=== PATIENT | male | born 1975 | race Caucasian/White ===

== ENCOUNTER 2022-01-18 13:55 | Emergency (ER) | payer MEDICARE ==
[2022-01-18] MEDS ORDERED: Sodium Chloride 0.9% 10 ML Syringe FLUSH PRN (14:27)
[2022-01-18] MEDS ORDERED: Sodium Chloride 0.9% 2.5 ML Syringe FLUSH PRN (14:27)
[2022-01-18 15:13] LABS: CARBON DIOXIDE,CO2 30.7 mmol/L (21.0-32.0); POTASSIUM,K 5.1 mmol/L (3.5-5.1)
[2022-01-18 16:18] LABS: CORONAVIRUS COVID-19 NAA NEGATIVE (NEGATIVE); INFLUENZA A NAA NEGATIVE (NEGATIVE); INFLUENZA B NAA NEGATIVE (NEGATIVE)
== END 2022-01-18 16:15 | disposition home or self-care (01) ==
LOC: MW.ED 13:55
DX: R07.89 Other chest pain (principal); E11.9 Type 2 diabetes mellitus without complications; R61 Generalized hyperhidrosis; E03.9 Hypothyroidism, unspecified; I50.9 Heart failure, unspecified; Z20.822 Contact with and (suspected) exposure to COVID-19
CPT/HCPCS: 0240U; 36415; 71045; 80053; 83690; 84484; 85025; 85379; 85610; 93005; 99285; J3490; 93010; 99284

== ENCOUNTER 2022-05-08 06:35 | Day surgery (SDC) | payer MEDICARE ==
[~2022-05-08 06:35] MED LIST: Acetaminophen 1,000 MG in Premix Bag 1 BAG IV SCH; Albuterol 0.083% 2.5 MG/3 ML Neb Soln NEB PRN; HYDROmorphone 1 MG/ML Syringe IVPUSH PRN; Lactated Ringers 1,000 ML IV SCH; Metoclopramide 10 MG/2 ML SDV IVPUSH PRN; Morphine 4 MG/ML VIAL IVPUSH PRN; Naloxone 0.4 MG/ML SDV IVPUSH PRN; Ondansetron 4 MG/2 ML SDV IVPUSH PRN; Pregabalin 75 MG Cap PO SCH; Ropivacaine 0.5% 5 MG/ML 30 ML SDV ONE; ceFAZolin 2 GM in Premix Bag 1 BAG IV SCH; fentaNYL 50 MCG/ML SDV IVPUSH PRN
[2022-05-08] MEDS ORDERED: propofoL 100 ML ONE (07:14)
[2022-05-08] MEDS ORDERED: Ketamine 500 mg/10 ML MDV ONE (07:15)
[2022-05-08] MEDS ORDERED: Dexmedetomidine 200 MCG/2 ML SDV ONE (07:15)
[2022-05-08] MEDS ORDERED: fentaNYL 100 MCG/2 ML SDV ONE ×2 (07:15→09:19)
[2022-05-08] MEDS ORDERED: Octyl 2-Cyanoacrylate 1 g/1 mL 1 APPLIC PEN ONE (07:18)
[2022-05-08] MEDS ORDERED: Bupivacaine 0.5% 30 ML SDV ONE (07:18)
[2022-05-08] MEDS ORDERED: Lidocaine 2% Jelly 30 ML Tube ONE (07:38)
[2022-05-08] MEDS ORDERED: Midazolam 1 MG/ML 2 ML SDV ONE (07:44)
[2022-05-08] MEDS ORDERED: ceFAZolin 1 GM Vial ONE (08:10)
[2022-05-08] MEDS ORDERED: ePHEDrine 50 MG/ML SDV ONE (08:33)
[2022-05-08] MEDS ORDERED: Ketorolac 30 MG/ML SDV ONE (08:34)
[2022-05-08] MEDS ORDERED: Ondansetron 4 MG/2 ML SDV ONE (08:34)
== END 2022-05-08 13:15 | disposition home or self-care (01) ==
LOC: MW.SDS 06:35
PROVIDERS: ATTEND Surgery
DX: K40.90 Unilateral inguinal hernia, without obstruction or gangrene, not specified as recurrent (principal); E11.9 Type 2 diabetes mellitus without complications; E78.00 Pure hypercholesterolemia, unspecified; I50.9 Heart failure, unspecified; E05.90 Thyrotoxicosis, unspecified without thyrotoxic crisis or storm; I25.2 Old myocardial infarction; I11.0 Hypertensive heart disease with heart failure; Z01.812 Encounter for preprocedural laboratory examination; Z87.891 Personal history of nicotine dependence; Z79.82 Long term (current) use of aspirin; Z79.899 Other long term (current) drug therapy; Z79.890 Hormone replacement therapy; Z20.822 Contact with and (suspected) exposure to COVID-19
CPT/HCPCS: 49505; 82947; A9270; C1781; J0131; J0690; J1885; J2250; J2405; J2704; J2795; J3010; J3490; J7120; U0002; 00830; 64486

== ENCOUNTER 2023-03-21 12:33 | Emergency (ER) | payer MEDICARE ==
[2023-03-21 13:19] LABS: BASOPHILS ABSOLUTE AUTO 0.1 K/uL (0.0-0.1); BASOPHILS PERCENT AUTO 1.3 % (0.0-1.5); EOSINOPHILS ABSOLUTE AUTO 0.1 K/uL (0.0-0.7); EOSINOPHILS PERCENT AUTO 1.4 % (0.0-7.0); HEMATOCRIT 56.1 % (38.0-50.0); HEMOGLOBIN 19.1 g/dL (13.0-17.0); LYMPHOCYTES PERCENT AUTO 12.3 % (16.0-40.0); MEAN CORPUSCULAR HEMOGLOBIN 30.1 pg (27.0-32.0); MEAN CORPUSCULAR VOLUME 88.3 fL (80.0-98.0); MONOCYTES ABSOLUTE AUTO 0.6 K/uL (0.0-0.8); MONOCYTES PERCENT AUTO 7.5 % (0.0-15.0); NEUTROPHILS ABSOLUTE AUTO 6.1 K/uL (1.4-5.7); NEUTROPHILS PERCENT AUTO 77.5 % (48.0-80.0); NRBC ABSOLUTE 0 K/uL; PLATELET COUNT,PLT 279 K/uL (150-400); RED BLOOD CELL COUNT 6.35 M/uL (4.50-5.90)
[2023-03-21 13:22] LABS: A/G RATIO 0.6 (0.9-1.6); ALBUMIN 2.4 g/dL (3.4-5.0); BILIRUBIN TOTAL 1.1 mg/dL (0.2-1.0); CALCIUM 8.6 mg/dL (8.5-10.1); CARBON DIOXIDE,CO2 28.2 mmol/L (21.0-32.0); CREATININE 1.3 mg/dL (0.8-1.3); EST CRCL DRUG DOSING (CG) 80.79 mL/min; POTASSIUM,K 4.5 mmol/L (3.5-5.1); PROTEIN TOTAL,TP 6.5 g/dL (6.4-8.2)
[2023-03-21] MEDS ORDERED: Furosemide 40 MG/4 ML VIAL IVPUSH ONE (13:35)
== END 2023-03-21 15:39 | disposition home or self-care (01) ==
LOC: MW.ED 12:33
DX: J40 Bronchitis, not specified as acute or chronic (principal); E78.00 Pure hypercholesterolemia, unspecified; I25.2 Old myocardial infarction; M19.90 Unspecified osteoarthritis, unspecified site; E11.9 Type 2 diabetes mellitus without complications; E03.9 Hypothyroidism, unspecified; I50.9 Heart failure, unspecified; Z79.82 Long term (current) use of aspirin; Z79.899 Other long term (current) drug therapy
CPT/HCPCS: 36415; 71046; 80053; 83880; 84484; 85025; 93005; 96374; 99285; J1940; 93010; 99284

== ENCOUNTER 2023-11-06 08:06 | Inpatient (IN) | payer MEDICAID, MEDICARE ==
[2023-11-06 08:25] LABS: BASOPHILS PERCENT AUTO 1.4 % (0.0-1.0); EOSINOPHILS ABSOLUTE AUTO 0.21 K/uL (0.00-0.45); EOSINOPHILS PERCENT AUTO 2.9 % (0.0-6.0); HEMATOCRIT 55.5 % (42.0-52.0); HEMOGLOBIN 18.6 g/dL (14.0-18.0); IMMATURE GRAN ABSOLUTE AUTO 0.03 K/uL (0.00-0.05); IMMATURE GRAN PERCENT AUTO 0.4 % (0.0-0.4); LYMPHOCYTES ABSOLUTE AUTO 0.88 K/uL (1.00-4.80); LYMPHOCYTES PERCENT AUTO 12.3 % (24.0-44.0); MEAN CORPUSCULAR HEMOGLOBIN 29.8 pg (28.0-32.0); MEAN CORPUSCULAR HGB CONC 33.5 g/dL (32.0-36.0); MEAN CORPUSCULAR VOLUME 88.8 fL (83.0-99.0); MEAN PLATELET VOLUME 10.9 fL (9.4-12.4); MONOCYTES ABSOLUTE AUTO 0.54 K/uL (0.00-0.80); MONOCYTES PERCENT AUTO 7.5 % (0.0-8.0); NEUTROPHILS ABSOLUTE AUTO 5.42 K/uL (1.80-7.70); NEUTROPHILS PERCENT AUTO 75.5 % (41.0-71.0); PLATELET COUNT,PLT 234 K/uL (150-400); RED BLOOD CELL COUNT 6.25 M/uL (4.52-5.90); WHITE BLOOD CELL COUNT,WBC 7.18 K/uL (3.9-11.3)
[2023-11-06] MEDS ORDERED: Morphine 4 MG/ML Syringe IVPUSH ONE (08:32)
[2023-11-06] MEDS ORDERED: Ondansetron 4 MG/2 ML SDV IVPUSH ONE ×2 (08:38→14:45)
[2023-11-06 08:44] LABS: A/G RATIO 0.7 (0.9-1.6); ALBUMIN 3.1 g/dL (3.4-5.0); BILIRUBIN TOTAL 0.9 mg/dL (0.2-1.0); CALCIUM 9.2 mg/dL (8.5-10.1); CARBON DIOXIDE,CO2 30.7 mmol/L (21.0-32.0); CREATININE 1.4 mg/dL (0.8-1.3); EST CRCL DRUG DOSING (CG) 74.21 mL/min; POTASSIUM,K 4.7 mmol/L (3.5-5.1); PROTEIN TOTAL,TP 7.3 g/dL (6.4-8.2)
[2023-11-06] MEDS ORDERED: Iopamidol 755 MG/ML 500 ML Multipack Bottle IVPUSH ONE (09:39)
[2023-11-06] MEDS ORDERED: Morphine 2 MG/ML SYRINGE IM ONE (10:46)
[2023-11-06] MEDS ORDERED: Morphine 2 MG/ML SYRINGE IVPUSH ONE (10:52)
[2023-11-06] MEDS ORDERED: Lidocaine 4% 1 each Patch TOP PRN (10:52)
[2023-11-06] MEDS ORDERED: Gadobenate Dimeglumine 529 MG/ML 20 ML SDV IVPUSH STA (10:59)
[2023-11-06] MEDS ORDERED: Iopamidol 755 MG/ML 500 ML Multipack Bottle IVPUSH STA (11:29)
[2023-11-06] MEDS ORDERED: Lactated Ringers 1,000 ML IV SCH (14:15)
[2023-11-06 14:26] LABS: APPEARANCE,URINE CLEAR; BILIRUBIN,URINE NEGATIVE (NEGATIVE); COLOR,URINE YELLOW; GLUCOSE,URINE NEGATIVE (NEGATIVE); KETONES,URINE NEGATIVE (NEGATIVE); LEUKOCYTE ESTERASE,URINE NEGATIVE (NEGATIVE); NITRITE,URINE NEGATIVE (NEGATIVE); OCCULT BLOOD,URINE SMALL (NEGATIVE); PROTEIN,URINE >=300 mg/dL (NEGATIVE); UROBILINOGEN,URINE 0.2 EU/dL (<2.0)
[2023-11-06] MEDS ORDERED: Morphine 4 MG/ML Syringe IVPUSH PRN (14:45)
[2023-11-06 14:55] LABS: BACTERIA,URINE FEW (NEGATIVE); EPITHELIAL CELLS,URINE NOT SEEN (NONE-FEW); MUCUS,URINE LIGHT (NONE-MOD); WBC,URINE 0-2 (0-5/HPF)
[2023-11-06] MEDS ORDERED: Sodium Chloride 0.9% 2.5 ML Syringe FLUSH PRN (16:22)
[2023-11-06] MEDS ORDERED: Naloxone 0.4 MG/ML SDV IVPUSH PRN (16:22)
[2023-11-06] MEDS ORDERED: Sodium Chloride 0.9% 10 ML Syringe FLUSH PRN (16:22)
[2023-11-06] MEDS ORDERED: Morphine 2 MG/ML SYRINGE IVPUSH PRN (16:22)
[2023-11-06] MEDS ORDERED: Pantoprazole 40 MG in Sodium Chloride 0.9% 10 ML IVPUSH SCH (16:30)
[2023-11-06] MEDS: Metoclopramide 10 MG/2 ML SDV IVPUSH SCH ×2 (17:04→23:52)
[2023-11-06] MEDS: cefTRIAXone 1 GM in Sodium Chloride 0.9% 50 ML IV SCH (17:40)
[2023-11-06] MEDS: Sodium Chloride 0.9% 1,000 ML IV SCH (17:40)
[2023-11-06] MEDS ORDERED: 50% Dextrose in Water 50 ML Syringe IVPUSH PRN (18:20)
[2023-11-06] MEDS ORDERED: Glucagon,Human Recombinant 1 MG Vial IM PRN (18:20)
[2023-11-06] MEDS: Heparin Sodium 5,000 Units/ML Vial SUBCUT SCH (18:38)
[2023-11-06] MEDS: Insulin Aspart 100 Units/ML 3 ML Pen SUBCUT SCH ×2 (18:40→23:56)
[2023-11-06] MEDS ORDERED: Carvedilol 12.5 MG Tab PO SCH ×2 (21:00)
[2023-11-06] MEDS: Morphine 4 MG/ML Syringe IVPUSH PRN (21:06)
[2023-11-07] MEDS: Morphine 4 MG/ML Syringe IVPUSH PRN ×8 (04:39→23:59)
[2023-11-07] MEDS: Heparin Sodium 5,000 Units/ML Vial SUBCUT SCH ×2 (05:47→18:49)
[2023-11-07] MEDS: Insulin Aspart 100 Units/ML 3 ML Pen SUBCUT SCH ×3 (05:50→19:35)
[2023-11-07 06:42] LABS: BASOPHILS ABSOLUTE AUTO 0.08 K/uL (0.00-0.20); BASOPHILS PERCENT AUTO 1.2 % (0.0-1.0); EOSINOPHILS ABSOLUTE AUTO 0.01 K/uL (0.00-0.45); EOSINOPHILS PERCENT AUTO 0.1 % (0.0-6.0); HEMATOCRIT 52.1 % (42.0-52.0); HEMOGLOBIN 17.7 g/dL (14.0-18.0); IMMATURE GRAN ABSOLUTE AUTO 0.04 K/uL (0.00-0.05); IMMATURE GRAN PERCENT AUTO 0.6 % (0.0-0.4); LYMPHOCYTES ABSOLUTE AUTO 0.47 K/uL (1.00-4.80); LYMPHOCYTES PERCENT AUTO 6.8 % (24.0-44.0); MEAN CORPUSCULAR HEMOGLOBIN 30.3 pg (28.0-32.0); MEAN CORPUSCULAR VOLUME 89.1 fL (83.0-99.0); MEAN PLATELET VOLUME 10.9 fL (9.4-12.4); MONOCYTES ABSOLUTE AUTO 0.39 K/uL (0.00-0.80); MONOCYTES PERCENT AUTO 5.7 % (0.0-8.0); NEUTROPHILS ABSOLUTE AUTO 5.89 K/uL (1.80-7.70); NEUTROPHILS PERCENT AUTO 85.6 % (41.0-71.0); PLATELET COUNT,PLT 216 K/uL (150-400); RED BLOOD CELL COUNT 5.85 M/uL (4.52-5.90); WHITE BLOOD CELL COUNT,WBC 6.88 K/uL (3.9-11.3)
[2023-11-07] MEDS: Levothyroxine 112 MCG Tab PO SCH (06:44)
[2023-11-07] MEDS: Sodium Chloride 0.9% 1,000 ML IV SCH ×2 (06:56→21:21)
[2023-11-07 07:09] LABS: A/G RATIO 0.7 (0.9-1.6); ALBUMIN 2.5 g/dL (3.4-5.0); CALCIUM 8.3 mg/dL (8.5-10.1); CREATININE 1.3 mg/dL (0.8-1.3); EST CRCL DRUG DOSING (CG) 79.92 mL/min; MAGNESIUM 1.7 mg/dL (1.8-2.4); POTASSIUM,K 3.8 mmol/L (3.5-5.1); PROTEIN TOTAL,TP 6.2 g/dL (6.4-8.2)
[2023-11-07] MEDS: Carvedilol 25 MG Tab PO SCH ×2 (09:54→22:03)
[2023-11-07] MEDS: Metoclopramide 10 MG/2 ML SDV IVPUSH SCH ×4 (09:55→21:17)
[2023-11-07] MEDS ORDERED: Magnesium Sulfate/Water 2 GM in Premix Bag 1 BAG IV ONE (11:04)
[2023-11-07] MEDS: Pantoprazole 40 MG in Sodium Chloride 0.9% 10 ML IVPUSH SCH (13:57)
[2023-11-07] MEDS: cefTRIAXone 1 GM in Sodium Chloride 0.9% 50 ML IV SCH (18:36)
[2023-11-08] MEDS: Ondansetron 4 MG/2 ML SDV IVPUSH PRN ×3 (00:03→12:53)
[2023-11-08] MEDS: Pantoprazole 40 MG in Sodium Chloride 0.9% 10 ML IVPUSH SCH ×2 (00:17→14:06)
[2023-11-08] MEDS: Insulin Aspart 100 Units/ML 3 ML Pen SUBCUT SCH ×3 (00:19→11:57)
[2023-11-08] MEDS: Morphine 4 MG/ML Syringe IVPUSH PRN ×5 (03:09→16:06)
[2023-11-08] MEDS: Metoclopramide 10 MG/2 ML SDV IVPUSH SCH ×3 (03:15→14:06)
[2023-11-08] MEDS: Levothyroxine 112 MCG Tab PO SCH (06:37)
[2023-11-08] MEDS: Heparin Sodium 5,000 Units/ML Vial SUBCUT SCH (06:39)
[2023-11-08 06:54] LABS: BASOPHILS ABSOLUTE AUTO 0.06 K/uL (0.00-0.20); BASOPHILS PERCENT AUTO 0.6 % (0.0-1.0); EOSINOPHILS ABSOLUTE AUTO 0.05 K/uL (0.00-0.45); EOSINOPHILS PERCENT AUTO 0.5 % (0.0-6.0); HEMATOCRIT 56.1 % (42.0-52.0); HEMOGLOBIN 18.6 g/dL (14.0-18.0); IMMATURE GRAN ABSOLUTE AUTO 0.04 K/uL (0.00-0.05); IMMATURE GRAN PERCENT AUTO 0.4 % (0.0-0.4); LYMPHOCYTES ABSOLUTE AUTO 0.65 K/uL (1.00-4.80); LYMPHOCYTES PERCENT AUTO 6.7 % (24.0-44.0); MEAN CORPUSCULAR HEMOGLOBIN 29.8 pg (28.0-32.0); MEAN CORPUSCULAR HGB CONC 33.2 g/dL (32.0-36.0); MEAN CORPUSCULAR VOLUME 89.9 fL (83.0-99.0); MEAN PLATELET VOLUME 11.5 fL (9.4-12.4); MONOCYTES ABSOLUTE AUTO 0.47 K/uL (0.00-0.80); MONOCYTES PERCENT AUTO 4.9 % (0.0-8.0); NEUTROPHILS ABSOLUTE AUTO 8.38 K/uL (1.80-7.70); NEUTROPHILS PERCENT AUTO 86.9 % (41.0-71.0); PLATELET COUNT,PLT 263 K/uL (150-400); RED BLOOD CELL COUNT 6.24 M/uL (4.52-5.90); WHITE BLOOD CELL COUNT,WBC 9.65 K/uL (3.9-11.3)
[2023-11-08 08:12] LABS: A/G RATIO 0.8 (0.9-1.6); ALBUMIN 2.7 g/dL (3.4-5.0); BILIRUBIN TOTAL 1.4 mg/dL (0.2-1.0); CALCIUM 8.4 mg/dL (8.5-10.1); CARBON DIOXIDE,CO2 25.7 mmol/L (21.0-32.0); CREATININE 1.3 mg/dL (0.8-1.3); EST CRCL DRUG DOSING (CG) 79.92 mL/min; POTASSIUM,K 3.9 mmol/L (3.5-5.1)
[2023-11-08] MEDS: Carvedilol 25 MG Tab PO SCH (08:26)
[2023-11-08] MEDS: Sodium Chloride 0.9% 1,000 ML IV SCH (12:02)
[2023-11-08] MEDS: cefTRIAXone 1 GM in Sodium Chloride 0.9% 50 ML IV SCH (16:17)
== END 2023-11-08 17:30 | DRG 74 ==
LOC: MW.ED 08:06 → MW.MS 16:15 → INTOOBSV 16:15 → OBSVTOIN 11-07 08:48
PROVIDERS: ADMIT Internal Medicine; ATTEND Internal Medicine
DX: R11.2 Nausea with vomiting, unspecified (principal); R42 Dizziness and giddiness; R07.9 Chest pain, unspecified; E11.43 Type 2 diabetes mellitus with diabetic autonomic (poly)neuropathy; I50.9 Heart failure, unspecified; I42.7 Cardiomyopathy due to drug and external agent; I50.22 Chronic systolic (congestive) heart failure; E78.00 Pure hypercholesterolemia, unspecified; E11.9 Type 2 diabetes mellitus without complications; N12 Tubulo-interstitial nephritis, not specified as acute or chronic; K31.84 Gastroparesis; E78.5 Hyperlipidemia, unspecified; I11.0 Hypertensive heart disease with heart failure; E03.9 Hypothyroidism, unspecified; M19.90 Unspecified osteoarthritis, unspecified site; I25.10 Atherosclerotic heart disease of native coronary artery without angina pectoris; I25.2 Old myocardial infarction; I45.10 Unspecified right bundle-branch block; F19.11 Other psychoactive substance abuse, in remission; Z79.82 Long term (current) use of aspirin; Z79.890 Hormone replacement therapy; Z79.899 Other long term (current) drug therapy; Z95.810 Presence of automatic (implantable) cardiac defibrillator; Z98.890 Other specified postprocedural states
CPT/HCPCS: 36415 ×2; 70498; 71045 ×2; 71275 ×2; 74177; 80053 ×2; 81001; 82947 ×2; 83690 ×2; 83735; 83880; 84484 ×2; 85025 ×2; 87086; 93005; 96361; 96365; 96372; 96375 ×3; 96376 ×3; 99285; A9270 ×3; C9113; G0378 ×3; J0696; J1644 ×2; J1815; J2270 ×6; J2405 ×2; J2765 ×2; J3490 ×2; J7030 ×2; J7120; Q9967 ×2; 76705; 76705-26; 83605; 93010; 96374; J3475

== ENCOUNTER 2024-06-18 15:04 | Emergency (ER) | payer MEDICARE ==
[2024-06-18 15:23] LABS: BASOPHILS ABSOLUTE AUTO 0.04 K/uL (0.00-0.20); BASOPHILS PERCENT AUTO 0.3 % (0.0-1.0); HEMATOCRIT 50.7 % (42.0-52.0); HEMOGLOBIN 16.8 g/dL (14.0-18.0); IMMATURE GRAN ABSOLUTE AUTO 0.03 K/uL (0.00-0.05); IMMATURE GRAN PERCENT AUTO 0.3 % (0.0-0.4); LYMPHOCYTES ABSOLUTE AUTO 0.34 K/uL (1.00-4.80); MEAN CORPUSCULAR HEMOGLOBIN 29.8 pg (28.0-32.0); MEAN CORPUSCULAR HGB CONC 33.1 g/dL (32.0-36.0); MEAN CORPUSCULAR VOLUME 89.9 fL (83.0-99.0); MEAN PLATELET VOLUME 10.3 fL (9.4-12.4); MONOCYTES PERCENT AUTO 2.6 % (0.0-8.0); NEUTROPHILS ABSOLUTE AUTO 10.81 K/uL (1.80-7.70); NEUTROPHILS PERCENT AUTO 93.8 % (41.0-71.0); PLATELET COUNT,PLT 360 K/uL (150-400); RED BLOOD CELL COUNT 5.64 M/uL (4.52-5.90); WHITE BLOOD CELL COUNT,WBC 11.52 K/uL (3.9-11.3)
[2024-06-18] MEDS: Ondansetron 4 MG/2 ML SDV IVPUSH STA (15:25)
[2024-06-18] MEDS: Sodium Chloride 0.9% 500 ML IV STA (15:25)
[2024-06-18] MEDS: Morphine 4 MG/ML Syringe IVPUSH STA ×2 (15:25→19:06)
[2024-06-18 15:36] LABS: INR 1.14 (0.86-1.11); PTT,PARTIAL THROMBOPLSTIN TIME 32.7 SEC (23.9-30.7)
[2024-06-18 15:53] LABS: A/G RATIO 0.9 (0.9-1.6); ALBUMIN 3.9 g/dL (3.4-5.0); BILIRUBIN TOTAL 0.9 mg/dL (0.2-1.0); CALCIUM 9.7 mg/dL (8.5-10.1); CARBON DIOXIDE,CO2 30.1 mmol/L (21.0-32.0); CREATININE 1.2 mg/dL (0.8-1.3); EST CRCL DRUG DOSING (CG) 84.15 mL/min; POTASSIUM,K 4.6 mmol/L (3.5-5.1); PROTEIN TOTAL,TP 8.3 g/dL (6.4-8.2); TSH ULTRASENSITIVE 22.06 uIU/mL (0.36-3.74)
[2024-06-18 16:22] LABS: T4 FREE 0.63 ng/dL (0.76-1.46)
[2024-06-18] MEDS: Furosemide 40 MG/4 ML VIAL IVPUSH STA (16:26)
[2024-06-18] MEDS: Sodium Chloride 0.9% 10 ML Syringe FLUSH PRN (16:28)
[2024-06-18] MEDS: Sodium Chloride 0.9% 2.5 ML Syringe FLUSH PRN (16:28)
[2024-06-18] MEDS: Iopamidol 755 Mg/ML 100 ML Bottle IVPUSH STA (17:15)
[2024-06-18 17:46] LABS: BILIRUBIN,URINE NEGATIVE (NEGATIVE); COLOR,URINE YELLOW; GLUCOSE,URINE NEGATIVE (NEGATIVE); KETONES,URINE NEGATIVE (NEGATIVE); LEUKOCYTE ESTERASE,URINE NEGATIVE (NEGATIVE); NITRITE,URINE NEGATIVE (NEGATIVE); OCCULT BLOOD,URINE TRACE-INTACT (NEGATIVE); PROTEIN,URINE 30 mg/dL (NEGATIVE); UROBILINOGEN,URINE 0.2 EU/dL (<2.0)
[2024-06-18 18:02] LABS: CORONAVIRUS COVID-19 NAA NEGATIVE (NEGATIVE); INFLUENZA A NAA NEGATIVE (NEGATIVE); INFLUENZA B NAA NEGATIVE (NEGATIVE)
[2024-06-18 18:29] LABS: APPEARANCE,URINE HAZY
[2024-06-18 18:30] LABS: BACTERIA,URINE 2+ (NEGATIVE); EPITHELIAL CELLS,URINE RARE (NONE-FEW); RBC,URINE 0-1 (0-2/HPF); WBC,URINE 0-2 (0-5/HPF)
[2024-06-18] MEDS: droPERidol 5 MG/2 ML SDV IVPUSH STA (18:56)
== END 2024-06-18 19:40 | disposition home or self-care (01) ==
LOC: MW.ED 15:04
DX: R07.9 Chest pain, unspecified (principal); N30.01 Acute cystitis with hematuria; R94.6 Abnormal results of thyroid function studies; R79.89 Other specified abnormal findings of blood chemistry; I11.0 Hypertensive heart disease with heart failure; I50.9 Heart failure, unspecified; I25.2 Old myocardial infarction; E78.00 Pure hypercholesterolemia, unspecified; E11.9 Type 2 diabetes mellitus without complications; Z79.82 Long term (current) use of aspirin; Z79.899 Other long term (current) drug therapy; Z79.890 Hormone replacement therapy; Z79.84 Long term (current) use of oral hypoglycemic drugs; Z75.8 Other problems related to medical facilities and other health care
CPT/HCPCS: 0240U; 36415; 71045; 71275; 74177; 80053; 81001; 83690; 83880; 84439; 84443; 84484; 85025; 85610; 85730; 87086; 87088; 87186; 93005; 96361; 96374; 96375; 96376; 99285; J1940; J2270; J2405; J3490; J7040; Q9967; 93010; 99284

== ENCOUNTER 2025-08-18 18:01 | Emergency (ER) | payer MEDICARE ==
[2025-08-18] MEDS: Benzocaine 20% Topical Spray UD MUCMEM ONE (18:44)
[2025-08-18] MEDS: Lidocaine 2% Viscous Solution 15 ML UD PO ONE (18:44)
[2025-08-18] MEDS: Lidocaine 1% with EPINEPHrine 1:100,000 10 ML MDV INJECT ONE (18:44)
== END 2025-08-18 19:09 | disposition home or self-care (01) ==
LOC: MW.ED 18:01
DX: K02.9 Dental caries, unspecified (principal); K05.6 Periodontal disease, unspecified; K06.9 Disorder of gingiva and edentulous alveolar ridge, unspecified; I11.0 Hypertensive heart disease with heart failure; I50.9 Heart failure, unspecified; I25.2 Old myocardial infarction; E11.9 Type 2 diabetes mellitus without complications; Z79.890 Hormone replacement therapy; Z79.899 Other long term (current) drug therapy
CPT/HCPCS: 64400; 99282; A9270; J2004; 64450; 99284